=== PATIENT | female | born 1995 | race Caucasian/White ===

== ENCOUNTER 2018-09-19 13:32 | Outpatient (CLI) | payer MEDICAID ==
[~2018-09-19] VITALS: Ht 166.4 cm; Wt 86.4 kg
[~2018-09-19 13:32] MED LIST: OXYC-302 PO
[2018-09-19 14:00] VITALS: BP 123/74
[2018-09-19 14:25] LABS: MICROSCOPIC AUTO
[2018-09-19] MEDS ORDERED: ACETAMINOPHEN 325 MG TABLET ONE (14:28)
[2018-09-19] MEDS ORDERED: ACETAMINOPHEN 325 MG TABLET PO PRN (14:30)
== END 2018-09-19 15:18 | disposition home or self-care (01) ==
LOC: LDOP 13:32
PROVIDERS: ATTEND Obstetrics & Gynecology Maternal & Fetal Medicine
DX: O26.892 Other specified pregnancy related conditions, second trimester (principal); R10.30 Lower abdominal pain, unspecified; Z3A.27 27 weeks gestation of pregnancy
CPT/HCPCS: 59025; 81001; 87086; 99201; G0463

== ENCOUNTER 2018-12-07 17:02 | Outpatient (CLI) | payer MEDICAID ==
[~2018-12-07] VITALS: Ht 165.1 cm; Wt 100.9 kg
[2018-12-07 17:35] VITALS: BP 132/85
[2018-12-07 18:03] LABS: MICROSCOPIC NOT IND
== END 2018-12-07 19:19 | disposition home or self-care (01) ==
LOC: LDOP 17:02
PROVIDERS: ATTEND Obstetrics & Gynecology Maternal & Fetal Medicine
DX: O42.92 Full-term premature rupture of membranes, unspecified as to length of time between rupture and onset of labor (principal); Z3A.39 39 weeks gestation of pregnancy
CPT/HCPCS: 59025; 81003; 84112; 87086; 99211; G0463

== ENCOUNTER 2018-12-14 10:44 | Inpatient (IN) | payer MEDICAID ==
[~2018-12-14] VITALS: Ht 165.1 cm; Wt 100.0 kg
[2018-12-15] MEDS ORDERED: OXYTOCIN 30U/ 0.9% NaCL 500ML 500 ML IV ONE (07:22)
[2018-12-15] MEDS ORDERED: OXYTOCIN 30U/ 0.9% NaCL 500ML 500 ML IV PRN (07:22)
[2018-12-15] MEDS ORDERED: D5%-LACTATED RINGERS 1,000 ML IV SCH (07:22)
[2018-12-15] MEDS ORDERED: ONDANSETRON 2MG/ML, 2ML IVPush PRN ×2 (07:30→12:00)
[2018-12-15] MEDS ORDERED: FENTANYL PF 100 MCG/2ML IV PRN (07:30)
[2018-12-15] MEDS ORDERED: TERBUTALINE 1 MG/ML, 1ML IVPush PRN (07:30)
[2018-12-15] MEDS ORDERED: FENTANYL PF 100 MCG/2ML IVPush PRN (07:30)
[2018-12-15] MEDS ORDERED: CALCIUM CARBONATE 500 MG TAB.CHEW PO PRN (07:30)
[2018-12-15 07:47] LABS: BASOPHILS # (AUTO) 0.04 x10^3/uL (0-0.1); BASOPHILS % (AUTO) 1 % (0-1); EOSINOPHILS # (AUTO) 0.06 x10^3/uL (0-0.4); EOSINOPHILS % (AUTO) 1 % (1-7); LYMPHOCYTES # (AUTO) 2.45 x10^3/uL (1-3.4); LYMPHOCYTES % (AUTO) 25 % (22-44); MD NO; MEAN CORPUSCULAR HEMOGLOBIN 30.1 pg (27.0-34.8); MEAN CORPUSCULAR HGB CONC 33.4 g/dL (32.4-35.8); MEAN CORPUSCULAR VOLUME 90.1 fL (80-100); MEAN PLATELET VOLUME 7.7 fL (7.4-10.4); MONOCYTES # (AUTO) 0.76 x10^3/uL (0.2-0.8); MONOCYTES % (AUTO) 8 % (2-9); NEUTROPHILS # (AUTO) 6.59 x10^3/uL (1.8-6.8); NEUTROPHILS % (AUTO) 67 % (42-75); PLATELET COUNT 199 x10^3/uL (130-400); RED BLOOD COUNT 3.83 x10^6/uL (3.82-5.3); RED CELL DISTRIBUTION WIDTH 14.9 % (9.6-15.2)
[2018-12-15] MEDS ORDERED: OXYTOCIN 30U/ 0.9% NaCL 500ML 500 ML ONE (07:51)
[2018-12-15] MEDS: LACTATED RINGERS 1,000 ML IV SCH ×3 (07:59→10:11)
[2018-12-15 08:02] VITALS: BP 139/81
[2018-12-15] MEDS ORDERED: LIDOCAINE 1%, 20ML ONE (08:45)
[2018-12-15] MEDS ORDERED: NEWBORN KIT ONE (08:45)
[2018-12-15] MEDS ORDERED: MISOPROSTOL 200 MCG TABLET ONE (08:46)
[2018-12-15 09:00] VITALS: BP 125/78
[2018-12-15] MEDS ORDERED: FENTANYL/BUPIV./NS/PF 250 ML EPIDCONT SCH ×2 (09:05→11:39)
[2018-12-15] MEDS ORDERED: FENTANYL PF 500 MCG, BUPIVACAINE/PF 0.5%, 30ML 62.5 ML in SODIUM CHLORIDE 0.9% 177.5 ML EPIDCONT SCH (09:30)
[2018-12-15] MEDS ORDERED: FENTANYL PF 100 MCG/2ML ONE (09:38)
[2018-12-15] MEDS ORDERED: BUPIVACAINE 0.25% ONE (09:38)
[2018-12-15] MEDS ORDERED: LACTATED RINGERS 1,000 ML IV SCH (11:39)
[2018-12-15] MEDS ORDERED: EPHEDRINE 50 MG/ML, 1ML IVPush PRN (12:00)
[2018-12-15] MEDS ORDERED: LACTATED RINGERS 1,000 ML IVBOLUS PRN (12:00)
[2018-12-15] MEDS: OXYTOCIN 30U/ 0.9% NaCL 500ML 500 ML IV SCH ×2 (12:16→22:16)
[2018-12-15] MEDS ORDERED: RHOGAM FROM BLOOD BANK 1 NOTE EA IM/IV ONE (12:30)
[2018-12-15] MEDS ORDERED: METHYLERGONOVINE 0.2 MG/ML IM PRN (12:30)
[2018-12-15] MEDS ORDERED: DIPH,PERTUSS(ACELL),TET VAC/PF NC IM-VACC PRN (12:30)
[2018-12-15] MEDS ORDERED: MISOPROSTOL 200 MCG TABLET PR PRN (12:30)
[2018-12-15] MEDS ORDERED: ACETAMINOPHEN 325 MG TABLET PO PRN (12:30)
[2018-12-15] MEDS ORDERED: OXYcodone/APAP 5/325MG TABLET PO PRN ×2 (12:30)
[2018-12-15] MEDS ORDERED: MEASLES,MUMPS&RUBELLA VACC/PF 0.5 ML SQ-VACC PRN (12:30)
[2018-12-15] MEDS ORDERED: CARBOPROST TROMETHAMINE 250 MCG/ML, 1ML IM PRN (12:30)
[2018-12-15 14:05] VITALS: BP 111/72
[2018-12-15] MEDS ORDERED: ONDANSETRON ODT 4 MG ONE (14:28)
[2018-12-15] MEDS ORDERED: ONDANSETRON 4 MG TABLET PO PRN (14:30)
[2018-12-15 18:00] VITALS: BP 128/87
[2018-12-15 19:40] VITALS: BP 106/71
[2018-12-15 20:48] LABS: BASOPHILS # (AUTO) 0.03 x10^3/uL (0-0.1); BASOPHILS % (AUTO) 0 % (0-1); EOSINOPHILS # (AUTO) 0.04 x10^3/uL (0-0.4); EOSINOPHILS % (AUTO) 0 % (1-7); LYMPHOCYTES # (AUTO) 2.27 x10^3/uL (1-3.4); LYMPHOCYTES % (AUTO) 19 % (22-44); MD NO; MEAN CORPUSCULAR HEMOGLOBIN 30.9 pg (27.0-34.8); MEAN CORPUSCULAR HGB CONC 34.3 g/dL (32.4-35.8); MEAN CORPUSCULAR VOLUME 90.1 fL (80-100); MEAN PLATELET VOLUME 7.9 fL (7.4-10.4); MONOCYTES # (AUTO) 0.89 x10^3/uL (0.2-0.8); MONOCYTES % (AUTO) 7 % (2-9); NEUTROPHILS # (AUTO) 9.07 x10^3/uL (1.8-6.8); NEUTROPHILS % (AUTO) 74 % (42-75); PLATELET COUNT 186 x10^3/uL (130-400); RED BLOOD COUNT 3.05 x10^6/uL (3.82-5.3); RED CELL DISTRIBUTION WIDTH 14.7 % (9.6-15.2)
[2018-12-16] VITALS (7 sets, daily range): BP systolic 101–126; BP diastolic 62–74
[2018-12-16] MEDS: IBUPROFEN 600 MG TABLET PO PRN ×2 (00:16→17:41)
[2018-12-16] MEDS ORDERED: MISOPROSTOL 200 MCG TABLET ONE (01:01)
[2018-12-16] MEDS ORDERED: MORPHINE SULFATE 4 MG/ML, 1ML ONE (02:56)
[2018-12-16] MEDS ORDERED: MORPHINE SULFATE 4 MG/ML, 1ML IV ONE (03:00)
[2018-12-16] MEDS ORDERED: METHYLERGONOVINE 0.2 MG/ML IM ONE (03:04)
[2018-12-16 03:26] LABS: BASOPHILS # (AUTO) 0.07 x10^3/uL (0-0.1); BASOPHILS % (AUTO) 1 % (0-1); EOSINOPHILS # (AUTO) 0.07 x10^3/uL (0-0.4); EOSINOPHILS % (AUTO) 1 % (1-7); LYMPHOCYTES # (AUTO) 2.97 x10^3/uL (1-3.4); LYMPHOCYTES % (AUTO) 26 % (22-44); MD NO; MEAN CORPUSCULAR HEMOGLOBIN 30.8 pg (27.0-34.8); MEAN CORPUSCULAR VOLUME 90.6 fL (80-100); MEAN PLATELET VOLUME 7.6 fL (7.4-10.4); MONOCYTES # (AUTO) 0.85 x10^3/uL (0.2-0.8); MONOCYTES % (AUTO) 7 % (2-9); NEUTROPHILS # (AUTO) 7.52 x10^3/uL (1.8-6.8); NEUTROPHILS % (AUTO) 66 % (42-75); PLATELET COUNT 177 x10^3/uL (130-400); RED BLOOD COUNT 2.91 x10^6/uL (3.82-5.3); RED CELL DISTRIBUTION WIDTH 14.9 % (9.6-15.2)
[2018-12-16] MEDS: OXYTOCIN 30U/ 0.9% NaCL 500ML 500 ML IV SCH ×2 (08:16→18:16)
[2018-12-16] MEDS: DOCUSATE 100 MG CAPSULE PO PRN (17:41)
[2018-12-16] MEDS: PRENATAL VIT/IRON/FA 1 EACH TABLET PO SCH (17:42)
[2018-12-17] MEDS: OXYTOCIN 30U/ 0.9% NaCL 500ML 500 ML IV SCH ×2 (04:16→14:16)
[2018-12-17 07:10] VITALS: BP 125/64
[2018-12-17] MEDS: PRENATAL VIT/IRON/FA 1 EACH TABLET PO SCH (07:49)
[2018-12-17] MEDS: DOCUSATE 100 MG CAPSULE PO PRN (07:49)
[2018-12-17] MEDS: IBUPROFEN 600 MG TABLET PO PRN ×3 (07:49→16:02)
== END 2018-12-17 16:18 | disposition home or self-care (01) | DRG 806 ==
LOC: LDIP 12-15 07:08 → 2NW 12-15 14:42
PROVIDERS: ADMIT Obstetrics & Gynecology Maternal & Fetal Medicine; ATTEND Obstetrics & Gynecology Maternal & Fetal Medicine
PROC: 10E0XZZ Delivery of Products of Conception, External Approach (ICD-10-PCS; principal; 2018-12-15)
PROC: 3E0R3BZ Introduction of Anesthetic Agent into Spinal Canal, Percutaneous Approach (ICD-10-PCS; 2018-12-15)
PROC: 00HU33Z Insertion of Infusion Device into Spinal Canal, Percutaneous Approach (ICD-10-PCS; 2018-12-15)
DX: O48.0 Post-term pregnancy (principal); O72.2 Delayed and secondary postpartum hemorrhage; Z37.0 Single live birth; Z3A.40 40 weeks gestation of pregnancy; O90.81 Anemia of the puerperium; D64.9 Anemia, unspecified
CPT/HCPCS: 36415; 85025; 86850; 86900; G0378; J3010; J3490; Q0162; J2210; J2590; J7050; J7120

== ENCOUNTER 2018-12-14 18:55 | Outpatient (CLI) | payer MEDICAID ==
[~2018-12-14] VITALS: Ht 165.1 cm; Wt 100.0 kg
== END 2018-12-14 20:15 | disposition home or self-care (01) ==
LOC: LDOP 18:55
PROVIDERS: ATTEND Obstetrics & Gynecology Maternal & Fetal Medicine
DX: O46.93 Antepartum hemorrhage, unspecified, third trimester (principal); Z3A.40 40 weeks gestation of pregnancy
CPT/HCPCS: 59025; 99211; G0463

== ENCOUNTER 2020-05-14 18:07 | Emergency (ER) | payer MEDICAID ==
[~2020-05-14] VITALS: Ht 165.1 cm; Wt 95.3 kg
--- NOTE | 2020-05-14 19:24 | NUR ---
THIS IS A 24 YO FEMALE COMING IN FOR VB WITH BLOODS CLOTS STARTING FRIDAY AND DECRIBES DARK RED BLOOD AND DISCHARGE FOR THE PAST COUPLE WEEKS, AND ABD PAIN. REPORTS PAIN WHEN PUTTING TAMPONS IN. HAS BEEN GOING THROUGH 10 PADS A DAY. LMP ON MARCH 21, BUT HAD 2 DAYS OF SPOTTING BEGINNING OF APRIL. A0. PATIENT STATES "I'M NOT BLEEDING RIGHT THIS SECOND, THIS IS THE FIRST TIME IT STOPPED". C/O BILATERAL LOWER QUADRANT ABD CRAMPING/PRESSURE RADIATING TO LOWER BACK AND PELVIC AREA. TAKES BCP. MONITORING IN PLACE, UA CUP GIVEN, CALL LIGHT IN REACH. JOSUÉ TIDWELL TO ROOM FOR EVAL
[2020-05-14 19:56] LABS: MICROSCOPIC INDICATED
[2020-05-14 20:12] LABS: BASOPHILS # (AUTO) 0.03 x10^3/uL (0-0.1); BASOPHILS % (AUTO) 0 % (0-1); EOSINOPHILS # (AUTO) 0.15 x10^3/uL (0-0.4); EOSINOPHILS % (AUTO) 2 % (1-7); LYMPHOCYTES % (AUTO) 28 % (22-44); MD NO; MEAN CORPUSCULAR HEMOGLOBIN 30.4 pg (27.0-34.8); MEAN CORPUSCULAR HGB CONC 33.2 g/dL (32.4-35.8); MEAN CORPUSCULAR VOLUME 91.7 fL (80-100); MEAN PLATELET VOLUME 8.8 fL (7.4-10.4); MONOCYTES # (AUTO) 0.39 x10^3/uL (0.2-0.8); MONOCYTES % (AUTO) 5 % (2-9); NEUTROPHILS # (AUTO) 5.07 x10^3/uL (1.8-6.8); NEUTROPHILS % (AUTO) 65 % (42-75); PLATELET COUNT 241 x10^3/uL (130-400); RED BLOOD COUNT 3.92 x10^6/uL (3.82-5.3); RED CELL DISTRIBUTION WIDTH 14.5 % (9.6-15.2)
[2020-05-14 20:23] LABS: ANION GAP 3 mmol/L (5-15); CALCIUM 8.4 mg/dL (8.5-10.1); CHLORIDE 112 mmol/L (98-107); CREATININE 0.81 mg/dL (0.55-1.02)
[2020-05-14] MEDS ORDERED: KETOROLAC 30 MG/1 ML IM ONE (20:30)
[2020-05-14] MEDS ORDERED: KETOROLAC 30 MG/1 ML ONE (20:48)
--- NOTE | 2020-05-14 20:55 | NUR ---
PATIENT MEDICATED PER EMAR, TOLERATED WELL
[2020-05-14 21:11] VITALS: BP 107/64
--- NOTE | 2020-05-14 21:11 | NUR ---
Patient given discharge instructions and they have confirmed that they understand the instructions. Patient ambulatory with steady gait.
== END 2020-05-14 21:13 | disposition home or self-care (01) ==
LOC: ED 21:00
DX: N93.8 Other specified abnormal uterine and vaginal bleeding (principal); R10.2 Pelvic and perineal pain
CPT/HCPCS: 36415; 80048; 81001; 84703; 85025; 99283

== ENCOUNTER 2020-09-22 21:52 | Emergency (ER) | payer MEDICAID ==
[~2020-09-22] VITALS: Ht 165.1 cm; Wt 101.0 kg
[2020-09-22] MEDS ORDERED: SODIUM CHLORIDE FLUSH 10ML SYR IVF ONE (22:30)
--- NOTE | 2020-09-22 22:42 | NUR ---
LAB CALLED POSITIVE STREP RESULT. ERP NOTIFIED.
[2020-09-22 22:56] VITALS: BP 121/78
[2020-09-22] MEDS ORDERED: BICILLIN-LA 1,200,000 UNITS/2 ML IM ONE (23:00)
== END 2020-09-22 23:43 | disposition home or self-care (01) ==
LOC: ED 23:26
DX: O26.891 Other specified pregnancy related conditions, first trimester (principal); J02.0 Streptococcal pharyngitis; H92.01 Otalgia, right ear; Z3A.10 10 weeks gestation of pregnancy
CPT/HCPCS: 87880; 96372; 99283; J0561

== ENCOUNTER 2020-11-01 07:36 | Emergency (ER) | payer MEDICAID ==
[~2020-11-01] VITALS: Ht 165.1 cm; Wt 104.4 kg
[2020-11-01] MEDS ORDERED: ONDANSETRON 2MG/ML, 2ML IVPush ONE (08:00)
[2020-11-01] MEDS ORDERED: SODIUM CHLORIDE 0.9% 1,000ML IVBOLUS ONE (08:00)
--- NOTE | 2020-11-01 08:10 | NUR ---
Pt presents to the ER with complaints of intermitent vaginal bleeding that started on 10/28/20. Pt states she lost a "big clot" on Friday and has had bleeding since. She has an OBGYN but has not been seen for this complaint. She complains of suprabupic pain and a constant sharp pain above her belly button. , with nothing like this in her previous pregnancys. Pt states she's "a little nervous" about being in the ER, pt's fears addressed. Pt connected to all monitoring equipment and educated about need for UA. Pt denies all urinary s/sx.
--- NOTE | 2020-11-01 08:14 | NUR ---
Pt to imaging now.
[2020-11-01 08:16] LABS: BASOPHILS % (AUTO) 1 % (0-1); EOSINOPHILS % (AUTO) 1 % (1-7); LYMPHOCYTES % (AUTO) 20 % (22-44); MEAN CORPUSCULAR HEMOGLOBIN 30.7 pg (27.0-34.8); MEAN CORPUSCULAR HGB CONC 34.6 g/dL (32.4-35.8); MEAN PLATELET VOLUME 7.5 fL (7.4-10.4); MONOCYTES % (AUTO) 6 % (2-9); NEUTROPHILS % (AUTO) 73 % (42-75); PLATELET COUNT 237 x10^3/uL (130-400); RED BLOOD COUNT 4.09 x10^6/uL (3.82-5.3); RED CELL DISTRIBUTION WIDTH 14.4 % (9.6-15.2)
[2020-11-01 08:17] LABS: MD NO
--- NOTE | 2020-11-01 08:39 | NUR ---
Break RN- pt back from ultrasound, aware of needed urine sample.
--- NOTE | 2020-11-01 09:10 | NUR ---
Amber GREEN PA at bedside for update on POC.
[2020-11-01 10:04] LABS: MICROSCOPIC INDICATED
[2020-11-01 10:25] VITALS: BP 107/57
== END 2020-11-01 10:35 | disposition home or self-care (01) ==
LOC: ED 08:48
DX: O20.0 Threatened abortion (principal); R00.0 Tachycardia, unspecified; Z3A.13 13 weeks gestation of pregnancy
CPT/HCPCS: 36415; 76801; 81001; 84702; 85025; 86901; 87086; 96360; 99284; J7030

== ENCOUNTER 2020-12-19 13:34 | Outpatient (CLI) | payer MEDICAID ==
[~2020-12-19] VITALS: Ht 165.1 cm; Wt 99.0 kg
[~2020-12-19 13:34] MED LIST changes: -OXYC-302 PO; +OXYC1TAB14 PO
[2020-12-19 15:28] LABS: MICROSCOPIC INDICATED
== END 2020-12-19 16:00 | disposition home or self-care (01) ==
LOC: LDOP 13:34
PROVIDERS: ATTEND Obstetrics & Gynecology Maternal & Fetal Medicine
DX: O46.93 Antepartum hemorrhage, unspecified, third trimester (principal); Z3A.40 40 weeks gestation of pregnancy
CPT/HCPCS: 81001; 87086; 99211; G0463

== ENCOUNTER 2021-02-19 15:24 | Outpatient (CLI) | payer MEDICAID ==
[~2021-02-19] VITALS: Ht 165.1 cm; Wt 117.0 kg
[2021-02-19 15:27] VITALS: BP 146/92
[2021-02-19 16:11] LABS: MICROSCOPIC AUTO
[2021-02-19 16:13] LABS: BASOPHILS % (AUTO) 1 % (0-1); EOSINOPHILS % (AUTO) 1 % (1-7); LYMPHOCYTES % (AUTO) 27 % (22-44); MD NO; MEAN CORPUSCULAR HEMOGLOBIN 30.4 pg (27.0-34.8); MEAN CORPUSCULAR HGB CONC 34.6 g/dL (32.4-35.8); MONOCYTES % (AUTO) 8 % (2-9); NEUTROPHILS % (AUTO) 63 % (42-75); PLATELET COUNT 236 x10^3/uL (130-400); RED BLOOD COUNT 3.48 x10^6/uL (3.82-5.3); RED CELL DISTRIBUTION WIDTH 13.8 % (9.6-15.2)
[2021-02-19 16:21] LABS: ALANINE AMINOTRANSFERASE 12 U/L (12-78); ALBUMIN 2.6 g/dL (3.4-5.0); ANION GAP 7 mmol/L (5-15); CALCIUM 8.4 mg/dL (8.5-10.1); CHLORIDE 107 mmol/L (98-107); CREATININE 0.44 mg/dL (0.55-1.02)
[2021-02-19 16:26] LABS: ALKALINE PHOSPHATASE 64 U/L (45-117); BILIRUBIN, DIRECT < 0.1 mg/dL (0.1-0.2); BILIRUBIN,TOTAL 0.2 mg/dL (0.2-1.0); TOTAL PROTEIN 6.6 g/dL (6.4-8.2)
== END 2021-02-19 18:48 | disposition home or self-care (01) ==
LOC: LDOP 15:24
PROVIDERS: ATTEND Obstetrics & Gynecology Maternal & Fetal Medicine
DX: O13.3 Gestational [pregnancy-induced] hypertension without significant proteinuria, third trimester (principal); O62.9 Abnormality of forces of labor, unspecified; Z3A.28 28 weeks gestation of pregnancy
CPT/HCPCS: 36415; 59025; 80053; 81001; 82248; 82570; 84156; 84550; 85025

== ENCOUNTER 2021-04-13 22:56 | Outpatient (CLI) | payer MEDICAID ==
[~2021-04-13] VITALS: Ht 165.1 cm; Wt 120.5 kg
[2021-04-13 23:28] VITALS: BP 118/70
[2021-04-13 23:34] LABS: MICROSCOPIC AUTO
== END 2021-04-14 00:41 | disposition home or self-care (01) ==
LOC: LDOP 22:56
PROVIDERS: ATTEND Obstetrics & Gynecology Maternal & Fetal Medicine
DX: O21.2 Late vomiting of pregnancy (principal); Z3A.35 35 weeks gestation of pregnancy
CPT/HCPCS: 59025; 81001; 87081; 87086

== ENCOUNTER 2021-04-26 16:20 | Outpatient (CLI) | payer MEDICAID ==
[~2021-04-26] VITALS: Ht 165.1 cm; Wt 121.4 kg
[2021-04-26 16:48] VITALS: BP 139/82
== END 2021-04-26 17:46 | disposition home or self-care (01) ==
LOC: LDOP 16:20
PROVIDERS: ATTEND Obstetrics & Gynecology Maternal & Fetal Medicine
DX: O26.893 Other specified pregnancy related conditions, third trimester (principal); R10.9 Unspecified abdominal pain; Z3A.37 37 weeks gestation of pregnancy
CPT/HCPCS: 59025

== ENCOUNTER 2021-05-10 13:13 | Inpatient (IN) | payer MEDICAID ==
[~2021-05-10] VITALS: Ht 165.1 cm; Wt 122.7 kg
[2021-05-12 12:35] VITALS: BP 138/76
[2021-05-12] MEDS: LACTATED RINGERS 1,000 ML IV SCH ×3 (12:40→22:00)
[2021-05-12] MEDS ORDERED: NEWBORN KIT ONE (13:22)
[2021-05-12] MEDS ORDERED: LIDOCAINE 1%, 20ML ONE (13:22)
[2021-05-12] MEDS ORDERED: MISOPROSTOL 200 MCG TABLET ONE (13:22)
[2021-05-12] MEDS ORDERED: OXYTOCIN 30U/ 0.9% NaCL 500ML 500 ML IV PRN (13:30)
[2021-05-12] MEDS ORDERED: FENTANYL PF 100 MCG/2ML IVPush PRN (13:30)
[2021-05-12] MEDS ORDERED: FENTANYL PF 100 MCG/2ML IV PRN (13:30)
[2021-05-12] MEDS ORDERED: OXYTOCIN 30U/ 0.9% NaCL 500ML 500 ML IV ONE (13:30)
[2021-05-12] MEDS ORDERED: ONDANSETRON 2MG/ML, 2ML IVPush PRN ×2 (13:30→22:00)
[2021-05-12] MEDS ORDERED: TERBUTALINE 1 MG/ML, 1ML IVPush PRN (13:30)
[2021-05-12] MEDS ORDERED: ALUMINUM/MAG/SIMETHICONE 30 ML UDC PO PRN (13:30)
[2021-05-12] MEDS ORDERED: TERBUTALINE 1 MG/ML, 1ML SQ PRN (13:30)
[2021-05-12 13:48] LABS: BASOPHILS % (AUTO) 1 % (0-1); EOSINOPHILS % (AUTO) 1 % (1-7); LYMPHOCYTES % (AUTO) 19 % (22-44); MEAN CORPUSCULAR HEMOGLOBIN 27.8 pg (27.0-34.8); MEAN CORPUSCULAR HGB CONC 33.9 g/dL (32.4-35.8); MEAN PLATELET VOLUME 7.2 fL (7.4-10.4); MONOCYTES % (AUTO) 8 % (2-9); NEUTROPHILS % (AUTO) 72 % (42-75); PLATELET COUNT 233 x10^3/uL (130-400); RED BLOOD COUNT 3.74 x10^6/uL (3.82-5.3); RED CELL DISTRIBUTION WIDTH 15.4 % (9.6-15.2)
[2021-05-12] MEDS ORDERED: MISOPROSTOL 25 MCG TABLET VG PRN (14:00)
[2021-05-12 16:59] VITALS: BP 138/76
[2021-05-12] MEDS ORDERED: ACETAMINOPHEN 325 MG TABLET ONE (20:24)
[2021-05-12] MEDS ORDERED: FENTANYL/BUPIV./NS/PF 250 ML EPIDCONT ONE (20:26)
[2021-05-12] MEDS ORDERED: BUPIVACAINE 0.25% ONE (20:26)
[2021-05-12 21:29] LABS: ALANINE AMINOTRANSFERASE 10 U/L (12-78); ALBUMIN 2.5 g/dL (3.4-5.0); ANION GAP 5 mmol/L (5-15); CALCIUM 8.5 mg/dL (8.5-10.1); CHLORIDE 110 mmol/L (98-107); CREATININE 0.45 mg/dL (0.55-1.02)
[2021-05-12 21:30] LABS: BILIRUBIN, DIRECT < 0.1 mg/dL (0.1-0.2)
[2021-05-12] MEDS ORDERED: ACETAMINOPHEN 325 MG TABLET PO PRN (21:30)
[2021-05-12 21:31] LABS: ALKALINE PHOSPHATASE 126 U/L (45-117); BILIRUBIN,TOTAL 0.4 mg/dL (0.2-1.0); TOTAL PROTEIN 6.4 g/dL (6.4-8.2)
[2021-05-12] MEDS ORDERED: LACTATED RINGERS 1,000 ML IVBOLUS PRN (22:00)
[2021-05-12] MEDS ORDERED: NALOXONE 0.4 MG/ML, 1ML IVPush PRN (22:00)
[2021-05-12] MEDS ORDERED: FENTANYL/BUPIV./NS/PF 250 ML EPIDCONT SCH (22:00)
[2021-05-12] MEDS ORDERED: EPHEDRINE 50 MG/ML, 1ML IVPush PRN (22:00)
[2021-05-12] MEDS ORDERED: DIPHENHYDRAMINE 50 MG/ML, 1ML IVPush PRN (22:00)
[2021-05-13] MEDS ORDERED: MISOPROSTOL 200 MCG TABLET PR PRN (02:00)
[2021-05-13] MEDS ORDERED: IBUPROFEN 600 MG TABLET PO PRN (02:00)
[2021-05-13] MEDS ORDERED: OXYTOCIN 30U/ 0.9% NaCL 500ML 500 ML IV SCH (02:00)
[2021-05-13] MEDS ORDERED: SIMETHICONE 80 MG CHEW TAB PO PRN (02:00)
[2021-05-13] MEDS ORDERED: ACETAMINOPHEN 325 MG TABLET PO PRN (02:00)
[2021-05-13] MEDS ORDERED: OXYcodone/APAP 5/325MG TABLET PO PRN ×2 (02:00)
[2021-05-13] MEDS ORDERED: DIPH,PERTUSS(ACELL),TET VAC/PF NC IM-VACC PRN (02:00)
[2021-05-13] MEDS ORDERED: CARBOPROST TROMETHAMINE 250 MCG/ML, 1ML IM PRN (02:00)
[2021-05-13 04:20] VITALS: BP 116/77
[2021-05-13] MEDS: LACTATED RINGERS 1,000 ML IV SCH (06:00)
[2021-05-13 08:10] VITALS: BP 127/83
[2021-05-13 09:03] LABS: BASOPHILS % (AUTO) 1 % (0-1); EOSINOPHILS % (AUTO) 0 % (1-7); LYMPHOCYTES % (AUTO) 15 % (22-44); MEAN CORPUSCULAR HEMOGLOBIN 27.2 pg (27.0-34.8); MEAN CORPUSCULAR HGB CONC 33.6 g/dL (32.4-35.8); MONOCYTES % (AUTO) 9 % (2-9); NEUTROPHILS % (AUTO) 75 % (42-75); PLATELET COUNT 225 x10^3/uL (130-400); RED CELL DISTRIBUTION WIDTH 15.5 % (9.6-15.2)
[2021-05-13] MEDS: DOCUSATE 100 MG CAPSULE PO PRN (10:26)
[2021-05-13] MEDS: PRENATAL VIT/IRON/FA 1 EACH TABLET PO SCH (10:26)
[2021-05-13 12:00] VITALS: BP 131/84
[2021-05-13 12:10] VITALS: BP 131/84
[2021-05-13 16:01] VITALS: BP 132/84
[2021-05-13] MEDS ORDERED: MEASLES,MUMPS&RUBELLA VACC/PF 0.5 ML SQ-VACC ONE ×2 (17:10→17:30)
[2021-05-13 19:45] VITALS: BP 118/80
[2021-05-14 01:12] VITALS: BP 113/75
[2021-05-14 08:01] VITALS: BP 118/82
[2021-05-14] MEDS: PRENATAL VIT/IRON/FA 1 EACH TABLET PO SCH (09:37)
[2021-05-14] MEDS: DOCUSATE 100 MG CAPSULE PO PRN (09:37)
[2021-05-14] MEDS ORDERED: IBUP-1222 PO (12:21)
== END 2021-05-14 13:37 | disposition home or self-care (01) | DRG 807 ==
LOC: LDIP 05-12 12:00 → 2NW 05-13 04:40
PROVIDERS: ADMIT Obstetrics & Gynecology Maternal & Fetal Medicine; ATTEND Obstetrics & Gynecology Maternal & Fetal Medicine
PROC: 10E0XZZ Delivery of Products of Conception, External Approach (ICD-10-PCS; principal; 2021-05-13)
PROC: 10907ZC Drainage of Amniotic Fluid, Therapeutic from Products of Conception, Via Natural or Artificial Opening (ICD-10-PCS; 2021-05-13)
PROC: 3E0P7GC Introduction of Other Therapeutic Substance into Female Reproductive, Via Natural or Artificial Opening (ICD-10-PCS; 2021-05-13)
PROC: 3E0R3BZ Introduction of Anesthetic Agent into Spinal Canal, Percutaneous Approach (ICD-10-PCS; 2021-05-13)
PROC: 00HU33Z Insertion of Infusion Device into Spinal Canal, Percutaneous Approach (ICD-10-PCS; 2021-05-13)
DX: O80 Encounter for full-term uncomplicated delivery (principal); Z37.0 Single live birth; Z3A.39 39 weeks gestation of pregnancy; Z20.822 Contact with and (suspected) exposure to COVID-19; Z23 Encounter for immunization
CPT/HCPCS: 36415; 80053; 82248; 84550; 85025; 86592; 86850; 86900; 87635; 90707; G0378; J2405; J2590; J3010; J7120